=== PATIENT | female | born 1980 | race Caucasian/White ===

== ENCOUNTER 2016-08-31 18:27 | Emergency (ER) | payer OTHER ==
[2016-08-31 18:33] VITALS: BP 117/79; PULSE 88; RESP 16; TEMP 98.1; O2SAT 97
--- NOTE | 2016-08-31 18:48 | UCPHY ---
H & P Time Seen by Provider: 08/31/16 18:36 Patient Type: Established HPI/ROS: CHIEF COMPLAINT: Congestion. HISTORY OF PRESENT ILLNESS: The patient is a 35 year old female presenting with congestion that started 7 days ago. The patient first developed a sore throat. She now has nasal drainage as well as post nasal drip. Nasal drainage is green in color. She reports pressure sensation to the sinus regions. She has tried Flonase, allergy medication, and decongestant without alleviation. The patient states she is prone to sinus infections and believes her symptoms are similar. She denies fever, cough, shortness of breath. No nausea, vomiting, or diarrhea. The patient is travelling to [place] for the next 10 days and is concerned that her symptoms may worsen while out of the country. REVIEW OF SYSTEMS: Constitutional: No fever, no chills. Eyes: No discharge. ENT: Sore throat, congestion. Cardiovascular: No chest pain, no palpitations. Respiratory: No cough, shortness of breath, or wheezing. Gastrointestinal: No nausea vomiting or diarrhea. No abdominal pain. Genitourinary: No hematuria or frequency. Musculoskeletal: No back pain. Skin: No rashes. Neurological: No headache. 10 point ROS otherwise negative Past Medical/Surgical History: Hypertension, Mild asthma, Kidney disease Smoking Status: Never smoked Physical Exam: General Appearance: Alert, no distress. Afebrile. Normal phonation. No respiratory distress. Eyes: Pupils equal and round no pallor or injection. No icterus ENT, Mouth: Mucous membranes moist. Pharynx without erythema or exudate. TM Clear. Mild sinus tenderness over the maxillary and to a less extned the frontal, as well as when she leans forward. Neck: No adenopathy. Supple. No JVD. Trachea in midline. Neurological: Ox3. No motor weakness. Sensation intact. Gait nl. Skin: Warm and dry, no rashes. Musculoskeletal: No joint swelling. Extremities: No edema. Psychiatric: Normal affect. Constitutional: Initial Vital Signs Temperature (C) 36.7 C 08/31/16 18:31 Heart Rate 88 08/31/16 18:31 Respiratory Rate 16 08/31/16 18:31 Blood Pressure 117/79 08/31/16 18:31 O2 Sat (%) 97 08/31/16 18:31 O2 Delivery Mode Room Air Allergies/Adverse Reactions: amoxicillin trihydrate [From Augmentin] Allergy (Intermediate, Verified 11:40) Rash cephalexin Allergy (Intermediate, Verified 12/10/15 11:40) Rash ciprofloxacin [From Cipro] Allergy (Intermediate, Verified 12/10/15 11:40) Rash ciprofloxacin HCl [From Cipro] Allergy (Intermediate, Verified 12/10/15 11:40) Rash erythromycin ethylsuccinate [From Pediazole] Allergy (Intermediate, Verified 08/22 11:40) Rash latex Allergy (Intermediate, Verified 12/10/15 11:40) Rash Penicillins Allergy (Intermediate, Verified 12/10/15 11:40) Rash potassium clavulanate [From Augmentin] Allergy (Intermediate, Verified 12/10/15 11:40) Rash sulfamethoxazole [From Bactrim] Allergy (Intermediate, Verified 12/10/15 11:40) Rash sulfisoxazole acetyl [From Pediazole] Allergy (Intermediate, Verified 12/10/15 11:40) Rash trimethoprim [From Bactrim] Allergy (Intermediate, Verified 12/10/15 11:40) Rash Home Medications: Medication Instructions Recorded Lisinopril 07/29/15 Claritin 09/17/15 Cefdinir [Omnicef (*)] 300 mg PO BID #20 cap 08/31/16 Medical Decision Making ED Course/Re-evaluation: The patient presents with nasal drainage and post nasal drip for the past 7 days. She is leaving for [place] for 10 days and is concerned her symptoms may worsen while there. I reviewed her past medical records to find an antibiotic that does not conflict with her large allergy history. I prescribed Omnicef in case her symptoms do not improve or seem to worsen while she is out of the country. Differential Diagnosis: Differential diagnosis includes, but is not limited to: Gastroenteritis, dehydration, hepatitis, cholecystitis, appendicitis, gastritis , mesenteric adenitis, food poisoning, acid peptic disease, bacterial dysentery. Seems early to Rx, but I will give her a back up Rx in case sx accelerate on vacation. Departure - Departure Disposition: Home, Routine, Self-Care Clinical Impression: Sinusitis, URI, acute Condition: Good Instructions: Sinusitis (ED) Additional Instructions: Try Afrin to help treat congestion. You can pick this up from the store. Start Omnicef, your prescribed antibiotic, if your symptoms have not improved after 10 days from onset. Referrals: Viktoria Castro MD [Primary Care Provider] - As per Instructions Prescriptions: Cefdinir [Omnicef (*)] 300 mg PO BID #20 cap - PQRS PQRS Measurement: NA Report Scribed for: Manuel Gomez Report Scribed by: Ninoska Snell Date of Report: 08/31/16 Time of Report: 18:48
== END 2016-08-31 19:10 | disposition home or self-care (01) ==
LOC: CED 18:27
DX: J01.90 Acute sinusitis, unspecified (principal); I10 Essential (primary) hypertension; N28.9 Disorder of kidney and ureter, unspecified
CPT/HCPCS: 99214-PO; G0463-PO